=== PATIENT | male | born 1975 | race Caucasian/White ===

== ENCOUNTER → 2021-10-04 | Outpatient (CLI) | payer OTHER ==
[~2021-10-04] VITALS: Ht 182.9 cm; Wt 83.9 kg
[~2021-10-04] MED LIST: MULTI VITAMIN1 EACH PO
--- NOTE | 2021-10-06 10:40 | P ---
[facility] [place] [place] [place] [address] PROCEDURE REPORT Name: LUCHO TAY DOERR Room #: REG Kb Almaguer#: [id number] Admission: 10/04/21 Attend Phys: Filipe Garcia Discharge: Date of : 75 Report #: [id number] THIS REPORT FOR: cc: Michael Etienne MD, Damon M. MD McElhinney, Christian C. MD ~ cc: Cy Arana DO DATE OF SERVICE: 10/04/2021 PROCEDURE PERFORMED: Flexible sigmoidoscopy with biopsies. HISTORY OF PRESENT ILLNESS: The patient is a 46-year-old male with previous history of ulcerative colitis, status post subtotal colectomy with J-pouch. He has a previous history of pouchitis in 2019, was treated with Cipro at that time. He denies any symptoms at this time. He has at his baseline 3-6 stools per day. He denies any blood in his stools. He does have a family history of colon cancer in great grandparents. No family history of inflammatory bowel disease. He is on no medications at this time. DESCRIPTION OF PROCEDURE: The risks and benefits of the procedure were explained to the patient, those risks including but not limited to bleeding, perforation and the risk of sedation. He understood these risks and gave informed consent. Sedation was given using propofol per anesthesia. Next, a digital rectal exam was initially performed, which was normal. Next, using a standard Olympus colonoscope, the scope was placed in the patient's anus and advanced under direct vision into the J-pouch. The surgical changes were noted. I was able to advance the scope into the terminal ileum, which was normal. In the J-pouch itself, a single 3 mm clean white based ulcer was noted. No evidence of bleeding. Biopsies were obtained. The suture line was seen in the very distal rectum. The rectal tissue appeared normal distal to this. Several biopsies were obtained. Random biopsies were obtained in the distal rectum. The scope was then withdrawn and the procedure terminated. The patient tolerated the procedure well. IMPRESSION: 1. Small ulceration in the J-pouch. No evidence of bleeding. Biopsies obtained. 2. Suture line distal rectum noted. No obvious colitis noted in the distal rectum. Biopsies obtained. RECOMMENDATION: Await biopsy results. [address] [address] PROCEDURE REPORT Name: LUCHO TAY Room #: REG ANNABEL Almaguer#: [id number] Admission: 10/04/21 Attend Phys: Filipe Garcia Discharge: Date of : 75 Report #: [id number] Thank you for allowing me to participate in his care. <ELECTRONICALLY SIGNED> By: Filipe Hernandez MD 10/06/21 1040 [id number] [id number] Filipe Hernandez MD /nt
--- NOTE | 2021-10-06 17:07 | PATH ---
[facility] [place] [address] PATHOLOGY RPT PROCEDURE Name: LUCHO TAY Room #: REG [facility] Smith.#: [id number] Admission: 10/04/21 Date of : 75 Discharge: Report #: [id number] Path Case #: [id number] [facility] Accession Number: [id number] . 01 Material submitted: . PART A: rectum - BIOPSY RECTAL R/O POUCHITIS PART B: rectum - DISTAL RECTUM RANDOM BIOPSY . 01 Clinical history: . COLONOSCOPY . 01 Diagnosis: A. Ileocolic mucosa, "rectal biopsy, rule out pouchitis": - Diagnostic features of pouchitis are not seen. There is no evidence of acute ulceration, granulation tissue, cryptitis, crypt abscesses and decreased mucin. No evidence of dysplasia or malignancy. . B. Colonic mucosa, "distal rectum random biopsy": - Mildly active chronic colitis with focal mild acute cryptitis with lamina propria chronic lymphoplasmacytic infiltrate and with architectural distortion. See comment. . (MAXIMINO:cornelia; 10/06/2021) [facility]BR 10/06/2021 1037 Local . 01 Comment: B. These findings are consistent with an inflammatory bowel disease, however, they can also be seen in infectious processes. There is no evidence of dysplasia, atypia or malignancy. ([facility]:cornelia; 10/06/2021) . 01 Electronically signed: . Derick Elias MD, Pathologist NPI- [id number] . 01 Gross description: . A. The specimen is received in formalin, labeled "Lucho Tay, rectal BX R/O pouchitis" and consists of a caballero irregular tissue measuring 0.4 x 0.2 x 0.2 cm which is submitted in toto in A1. . B. The specimen is received in formalin, labeled "Micky Tay, distal rectum random BX" and consists of multiple caballero irregular tissues aggregating 0.6 x 0.6 x 0.2 cm which are filtered and submitted in toto in B1.(KAKTOVIK; 10/05/2021) DKA/DKA 10/05/2021 1039 Local . 01 Pathologist provided ICD-10: [address] [address] PATHOLOGY RPT PROCEDURE Name: TAYLUCHOANA MARÍA VEGA Room #: REG CLI Rosina#: [id number] Admission: 10/04/21 Date of : 75 Discharge: Report #: [id number] Path Case #: [id number] K52.9, K62.89 . 01 CPT . 465667, [id number] Specimen Comment: A courtesy copy of this report has been sent to [phone], [phone] Specimen Comment: [id number] Specimen Comment: Report sent to / DR SALAS Performed at: [address], [place], [place] [id number] MD Derick Elias MD Phone: [phone]
== END | disposition home or self-care (01) ==
LOC: GI 07:26
PROVIDERS: ATTEND Specialist
DX: K51.90 Ulcerative colitis, unspecified, without complications (principal); K52.9 Noninfective gastroenteritis and colitis, unspecified; K62.89 Other specified diseases of anus and rectum; Z98.890 Other specified postprocedural states; Z79.899 Other long term (current) drug therapy
CPT/HCPCS: 62110; 62900